=== PATIENT | female | born 1970 | race Caucasian/White ===

== ENCOUNTER → 2016-09-26 | Outpatient (CLI) | payer OTHER ==
[~2016-09-26] MED LIST: ACETAMINOPHEN PO; ADVAIR; ADVAIR 250-501 EAC1 IH; ADVAIR INH; ALBUTEROL17 GM; ALBUTEROL17 GM INH; ALLERGY RELIEF10 M2 PO; BACLOFEN10 MG; BACLOFEN10 MG PO; BACTRIM DS TABL1 TA1 PO; BENZONATATE PO; FLEXERIL10 MG PO; IBUPROFEN PO; LORTAB 5/500 TA1 TA1 PO; MEDROL DOSEPAK4 MG DOB; MEDROL PO; MEDROL4 MG/DOSE- PO; MOTRIN400 MG; NAPROSYN500 MG PO; NAPROXEN PO; NO MEDICATIONS; PREDNISONE PO; PRENATAL VITAMI1 TA3 PO; TESSALON200 MG PO; TYLENOL #3 PO; VICODIN 5/1 TAB 5/50 PO; VICODIN 5/500 T1 TAB PO; ZITHROMAX PO; ZITHROMAX1 G/PKT PO
--- NOTE | ~2016-09-26 | MR113 ---
[facility] A Service of [facility] & [facility] RADIOLOGY TEXT RESULTS PATIENT: ARNOLDO GOMES LOCATION: [facility] : 68 UNIT #: [id number] AGE: [address]: Sergey Ames MD SEX: F ORDER DR: [id number] [facility] [address] [place], [place] [address] [id number] O MR#: [id number] Acc #: [id number] NAME: ARNOLDO GOMES. : 1970 SEX: F STUDY DATE/TIME: 09/26/2016 15:21 UNIT: [facility] ROOM: STUDY DESCRIPTION: MR Lumbar Wo Contrast Attending Physician: Sergey Ames M.D. Referring Physician: Sergey Ames M.D. Ordering Physician: Sergey Ames M.D. Primary Care Physician: Deirdre Reed M.D. MRI CENTER REPORT This report is preliminary unless electronic signature is present. EXAM Lumbar spine MR, no contrast, 09/26/2016. COMPARISON None. HISTORY Chronic low back pain with some pain radiating down the right leg. Bilateral hand and foot numbness, right greater than left. FINDINGS There is a grade I anterolisthesis at L5-S1 with bilateral pars defects. Bone marrow signal is normal. There is a grade I 5-1 anterolisthesis with bilateral pars defects. There is a mild levoscoliosis. The uterus is prominent and there may be uterine fibroids, but incompletely evaluated here. Adjacent soft tissues are otherwise unremarkable. The distal cord and conus are normal in position and appearance. At 1-2, 2-3, 3-4 and 4-5, there is no canal stenosis. There is a slight disc bulge at 4-5 but there is no foraminal narrowing at 1-2, 2-3, 3-4 or 4-5 on either side. At 5-1, there is anterolisthesis and pseudodisc bulge but no canal stenosis, but there is bilateral foraminal distortion and narrowing, moderate or moderate to severe on the left and mild to moderate or moderate on the right. IMPRESSION Bilateral L5 pars defects with grade I 5-1 anterolisthesis and bilateral STS. [facility] A Service of [facility] & [facility] RADIOLOGY TEXT RESULTS PATIENT: ARNOLDO GOMES [facility] [birth year] UN[facility] #: [id number] AGE: [address]: Sergey Ames MD SEX: F ORDER DR: foraminal narrowing and distortion. Dictated by... Krishan Oviedo M.D. THIS IS AN ELECTRONICALLY VERIFIED REPORT Krishan Oviedo M.D. at 09/26/2016 10:44 PM TEV/psc TD: 09/26/2016 21:41 JOB #: [id number] MRI CENTER REPORT COPY
--- NOTE | ~2016-09-26 | MR176 ---
[facility] A Service of [facility] & [facility] RADIOLOGY TEXT RESULTS PATIENT: ARNOLDO GOMES LOCATION: [facility] : 68 UNIT #: [id number] AGE: [address]: Sergey Ames MD SEX: F ORDER DR: [id number] [facility] [address] [place], [place] [address] [id number] O MR#: [id number] Acc #: [id number] NAME: ARNOLDO GOMES. : 1970 SEX: F STUDY DATE/TIME: 09/26/2016 14:58 UNIT: [facility] ROOM: STUDY DESCRIPTION: MR Thoracic Wo Contrast Attending Physician: Sergey Ames M.D. Referring Physician: Sergey Ames M.D. Ordering Physician: Sergey Ames M.D. Primary Care Physician: Deirdre Reed M.D. MRI CENTER REPORT This report is preliminary unless electronic signature is present. EXAM MRI of the thoracic spine without contrast dated 09/26/2016. COMPARISON Plain films thoracic spine dated 11/13/2009. HISTORY Chronic upper and lower back pain for 10 years. Increasing pain for the last 6 months with shooting pain down the right leg. Bilateral hands and feet have numbness, worse in the right when compared to the left. FINDINGS Multisequence, multiplanar imaging of the thoracic spine was obtained without contrast. Vertebral body heights and alignment are preserved. Degenerative disc signal loss is seen in some of the thoracic levels without any focal significant disc herniation, canal stenosis or neural foraminal narrowing. Thoracic cord demonstrates normal course, caliber and signal. There is disc bulge with central protrusion at C7-T1 causing mild canal stenosis. IMPRESSION 1. Mild degenerative disc signal loss is seen in the thoracic spine without focal significant disc herniation, canal stenosis or neural foraminal narrowing. 2. Disc bulge with central protrusion is at C7-T1 causing borderline size to mild canal stenosis, based on the sagittal images. There is focal ligamentum flavum thickening along the posterior aspect of the thecal sac at the level of C2-3 and, to a lesser degree, in some of the other thoracic levels without any significant associated abnormality. [facility] A Service of [facility] & [facility] RADIOLOGY TEXT RESULTS PATIENT: ARNOLDO GOMES LOCATION: [facility] : [birth year] UNIT #: [id number] AGE: [address]: Sergey Ames MD SEX: F ORDER DR: Dictated by... Donald Hanna M.D. THIS IS AN ELECTRONICALLY VERIFIED REPORT Donald Hanna M.D. at 09/27/2016 3:41 PM CPR/psc TD: 09/26/2016 20:01 JOB #: [id number] MRI CENTER REPORT COPY
== END | disposition home or self-care (01) ==
LOC: CMRI 13:12
DX: M54.41 Lumbago with sciatica, right side (principal); M51.34 Other intervertebral disc degeneration, thoracic region; M50.20 Other cervical disc displacement, unspecified cervical region; M48.02 Spinal stenosis, cervical region; M50.80 Other cervical disc disorders, unspecified cervical region; M43.16 Spondylolisthesis, lumbar region
CPT/HCPCS: 72146; 72148

== ENCOUNTER → 2017-01-22 | Outpatient (CLI) | payer OTHER ==
[2017-01-22 15:43] LABS: ALBUMIN SERUM 3.9 g/dL (3.5-5.0); BILIRUBIN, DIRECT 0.1 mg/dL (0.0-0.2); BILIRUBIN,INDIRECT 0.4 mg/dL (0.0-0.9); BILIRUBIN,TOTAL 0.5 mg/dL (0.2-2.0); PROTEIN TOTAL SERUM 7.5 g/dL (6.0-8.3)
== END | disposition home or self-care (01) ==
LOC: CLAB 14:33
PROVIDERS: Podiatrist Foot & Ankle Surgery
DX: B35.1 Tinea unguium (principal); Z79.899 Other long term (current) drug therapy
CPT/HCPCS: 36415; 80076